=== PATIENT | female | born 1970 | race African-American/Black ===

== ENCOUNTER 2021-11-19 08:07 | Outpatient (REF) | payer OTHER, SELFPAY ==
[2021-11-19 08:24] LABS: MANUAL DIFF FLAG NO
[2021-11-19 09:24] LABS: Basophils Absolute Auto 0.1 X10*3/uL (0.0-0.2); Basophils Percent Auto 0.6 % (0-2); Eosinophils Absolute Auto 0.3 X10*3/uL (0.0-0.4); Eosinophils Percent Auto 3.5 % (0-4); Hematocrit 40.4 % (37.0-47.0); Hemoglobin 13.4 g/dl (12.0-16.0); Imm Gran Abs Auto 0.08 X10*3/uL (0.00-0.03); Imm Gran Pct Auto 0.8 % (0.0-0.4); Lymphocytes Absolute Auto 2.7 X10*3/uL (1.2-4.9); Lymphocytes Percent Auto 28.2 % (20-40); Mean Corpuscular HGB Conc 33.2 g/dl (31.0-35.0); Mean Corpuscular Hemoglobin 29.5 pg (27.0-33.0); Mean Platelet Volume 11.3 fL (9.4-12.3); Monocytes Absolute Auto 0.5 X10*3/uL (0.1-1.2); Monocytes Percent Auto 5.1 % (2-11); Neutrophils Percent Auto 61.8 % (45-73); Platelet Count 317 X10*3/uL (160-400); Red Blood Count 4.54 X10*6/uL (4.20-5.50); White Blood Count 9.7 X10*3/uL (4.8-10.8)
[2021-11-19 09:35] LABS: Alanine Aminotransferase 12 U/L (0-31); Albumin Level 4.3 g/dL (3.5-5.0); Alkaline Phosphatase 76 U/L (39-117); Anion Gap 13 (12-20); Aspartate Amino Transferase 16 U/L (5-31); Bilirubin Total 0.6 mg/dL (0.0-1.0); Blood Urea Nitrogen 9 mg/dL (9-16); Calcium 9.5 mg/dL (8.4-10.2); Carbon Dioxide 26 mmol/L (22-29); Chloride 104 mmol/L (96-108); Cholesterol 191 mg/dL; Estimated Glomerular Filt Rate > 60; Glucose Random 95 mg/dL (60-115); HDL Cholesterol 55 mg/dL; LDL Cholesterol Calculated 114 mg/dl; Sodium 139 mmol/L (135-145); Total Protein 7.1 g/dL (6.5-8.0); Triglycerides 113 mg/dL
[2021-11-19 09:37] LABS: Estimated Average Glucose 97 mg/dL
[2021-11-19 09:56] LABS: Free T4 (Free Thyroxine) 1.06 ng/dL (0.71-1.85); Thyroid Stimulating Hormone 2.17 uIU/mL (0.32-4.0); Vitamin D 25-OH Total 26.3 ng/mL (>30)
[2021-11-19 10:05] LABS: Folate 13.9 ng/mL (> or = 4.0); Vitamin B12 340 pg/mL (200-900)
== END 2021-11-19 08:08 | disposition home or self-care (01) ==
LOC: HO.LAB 08:07
PROVIDERS: PCP Internal Medicine; Visit Provider Internal Medicine
DX: I10 Essential (primary) hypertension (principal); K21.9 Gastro-esophageal reflux disease without esophagitis; E78.00 Pure hypercholesterolemia, unspecified
CPT/HCPCS: 36415; 80053; 80061; 82306; 82607; 82746; 83036; 84439; 84443; 85025

== ENCOUNTER 2023-05-08 11:02 | Outpatient (AMB) | payer OTHER, SELFPAY ==
[2023-05-08 11:03] VITALS: BP 126/82; PULSE 74; O2SAT 99; BMI 38.0
--- NOTE | 2023-05-08 11:03 | A.OFFPC_ITS ---
Vital Signs 05/08/23 11:03 Height 5 ft 2 in Weight 208 lb 0.6 oz BMI 38.0 BP 126/82 Blood Pressure Location Lt brachial Position Sitting Pulse 74 Pulse Source Pulse Oximeter Pulse Oximetry (%) 99 Oxygen Delivery Method Room Air Intake Visit Reasons: Annual exam Intake Note: Patient is here today for a physical. 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 Allergies [place] And Derivatives [CITRUS] Allergy (Unknown, Verified 05/08/23 11:08) ASTHMA ATTACKS shellfish derived [SHELLFISH DERIVED] Allergy (Unknown, Verified 05/08/23 11:08) UNKNOWN Medication List - Last Reconciled 05/08/23 by Nathaly Foley MD black cohosh 200 mg PO DAILY [Brain AWAKE capsule PO] fexofenadine (Neida Allergy) 180 mg PO DAILY fluticasone propion-salmeterol 250-50 mcg/dose (Advair Diskus) 1 inh PO BID fluticasone propionate 50 mcg/actuation 2 sprays intranasal DAILY hydrochlorothiazide 25 mg PO QAM multivitamin 1 tab PO DAILY omeprazole 20 mg PO DAILY sertraline 100 mg PO DAILY 90 days Tobacco use date assessed: 05/08/23 Dental Screening Dental Screen Date: 05/08/23 Did you have a dental visit in the last 12 months?: No Did you have a dental problem in the last 6 months where you did not have access to dental care?: No HPI Annual exam HPI Details 53-year-old obese female with asthma ANTONY D hypertension and generalized anxiety disorder last seen in April 2022. Patient is here for physical exam. Patient has been advised colonoscopy mammogram. [facility] Medical History (Updated 05/08/23 @ 11:27 by Nathaly Foley MD) Moderate obstructive sleep apnea Breast cancer screening by mammogram Frequency of micturition Generalized anxiety disorder Hypertension Obesity Asthma Allergic rhinitis Alcohol abuse GERD (gastroesophageal reflux disease) Surgical History H/O bilateral breast reduction surgery Family History Father No problems noted. Mother No problems noted. Maternal Grandfather Esophageal cancer Alcohol abuse Brother Schizophrenia Social History (Updated 05/08/23 @ 11:23 by Nathaly Foley MD) Housing: Apartment Alcohol intake: former Patient Tobacco Use Status: Former Tobacco user Tobacco use type: Cigarette Years Smoked: 38 years old stopped e-Cigarette/Vaping Use: Never Used Second Hand Smoke Exposure: No service: No Current occupational status: employed Current occupational exposures/hazards: No Cognitive needs: No Hearing needs: No Vision needs: Yes Questionnaire PHQ-9 Over the last 2 weeks, how often have you been bothered by any of the following problems? 1. Little interest or pleasure in doing things: not at all 2. Feeling down, depressed, or hopeless: not at all 3. Trouble falling or staying asleep, or sleeping too much: not at all 4. Feeling tired or having little energy: not at all 5. Poor appetite or overeating: not at all 6. Feeling bad about yourself - or that you are a failure or have let yourself or your family down: not at all 7. Trouble concentrating on things, such as reading the newspaper or watching television: not at all 8. Moving or speaking so slowly that other people could have noticed. Or the opposite - being so fidgety or restless that you have been moving around a lot more than usual: not at all 9. Thoughts that you would be better off or of hurting yourself in some way: not at all Total score: 0 Depression Screening Interpretation: Negative Depression Screening Done: Yes Source: Developed by Drs. Jasson Coffman, Esperanza Ibarra, Chip Barker and colleagues, with an educational zhanna from [employer]. Thrive Questionnaire Date Thrive assessed: 05/08/23 I am a: Patient What is your living situation today?: I have a steady place to live Within the past 12 months, did the food you bought not last and you didn't have the money to get more?: Never true Within the past 12 months, did you worry whether your food would run out before you got money to buy more?: Never true Do you have trouble paying for medicines?: No Do you have trouble getting transportation to medical appointments?: No Do you have trouble paying your heating and electricity bill?: No Do you have trouble taking care of your child, family member or friend?: No Do you have trouble with day-to-day activities such as bathing, preparing meals, shopping, managing finances, etc.?: No Are you currently unemployed and looking for a job?: No Are you interested in more education?: No AUDIT C Alcohol Use Questionnaire (AUDIT-C) 1. How often do you have a drink containing alcohol?: 2-4 times a month 2. How many drinks containing alcohol do you have on a typical day when you are drinking?: 1 or 2 3. How often do you have six or more drinks on one occasion?: Less than monthly Total Score: 3 JACK-7 AMB Questionnaire JACK-7 Date JACK - 7 assessed: 05/08/23 Feeling nervous, anxious, or on edge: 0 = Not at all Not being able to stop or control worryin = Not at all Worrying too much about different things: 0 = Not at all Trouble relaxin = Not at all Being so restless that it is hard to sit still: 0 = Not at all Becoming easily annoyed or irritable: 0 = Not at all Feeling afraid as if something awful might happen: 0 = Not at all Total JACK-7 score (0-4 normal; 5-9 mild; 10-14 moderate; 15-21 severe): 0 Source: Developed by Drs. Jasson Coffman, Esperanza Ibarra, Chip Barker and colleagues, with an educational zhanna from [employer]. Review of Systems Const Denies poor appetite and Denies weakness Eyes Denies no additional complaints ENT Reports Normal hearing present, Denies dizziness, Denies nasal congestion, Denies tinnitus and Denies sore throat Card Denies chest pain, Denies syncope, Denies rapid heart rate and Denies dyspnea Resp Denies cough and Denies dyspnea GI Denies change in stool character, Reports constipation, Denies diarrhea, Denies nausea and Denies vomiting Denies urinary frequency, Denies difficulty voiding and Denies dysuria Neuro Reports Normal hearing present, Denies confusion, Denies dizziness, Denies syncope and Denies weakness Psych Denies confusion Physical exam (Primary Care) Vital Signs: Last Vital Signs Pulse 74 05/08/23 11:03 BP 126/82 05/08/23 11:03 Pulse Ox 99 05/08/23 11:03 Oxygen Delivery Method Room Air 05/08/23 11:03 BMI result Body Mass Index 38.0 Tobacco/Smoking Status: Tobacco use Status Tobacco use date assessed 05/08/23 05/08/23 11:05 Patient Tobacco Use Status Former Tobacco user 05/08/23 11:05 Tobacco use type Cigarette 05/08/23 11:05 e-Cigarette/Vaping Use Never Used 05/08/23 11:05 PHQ-9: PHQ-9 Score PHQ-9: Total score 0 05/08/23 11:12 Depression Screening Interpretation: Negative Thrive Assessment: Date of Thrive Assessment Date Thrive assessed 05/08/23 05/08/23 11:05 Const General: No confusion Orientation/consciousness: No confusion HENMT Head: Yes normocephalic Ears: external ears normal and TM's normal bilaterally Face and sinus: Yes normal facial exam Mouth: moist mucous membranes Throat: Yes tonsils normal Eyes Conjunctivae: conjunctivae normal Pupils: Equal, round and reactive pupils present and Pupil accommodation reflex normal Direct Ophthalmoscopy: normal light reflex Neck Neck: No lymphadenopathy Thyroid: Thyroid normal Chest Chest palpation & inspection: normal inspection of the chest Resp Effort & Inspection: normal respiratory effort and no audible wheezes Auscultation: clear to auscultation bilaterally, no crackles, no wheezes and lung sounds not diminished Cardio Rate: regular rate Rhythm: regular rhythm Peripheral pulses: radial pulses present and dorsalis pedis present GI Palpation (GI): no masses Auscultation: normal bowel sounds and normoactive bowel sounds Rectal Exam - Female: deferred Skin General skin exam: no rashes or lesions noted Rashes: no rashes Neuro General: No confusion Cranial nerves: Yes Equal, round and reactive pupils present and Yes Normal hearing present Cognition (Neuro): normal cognition Gait exam (Neuro): Normal gait present Motor exam (neuro): 5/5 motor strength present throughout Deep tendon reflexes (DTR's): Right brachioradialis reflex intensity grade: 2+, Left brachioradialis reflex intensity grade: 2+, Right patellar reflex intensity grade: 2+ and Left patellar reflex intensity grade: 2+ Extrem General: No edema Office Procedures Flu Questionnaire Does the patient have a severe egg allergy?: No Does the patient have severe life threatening allergies?: No Does the patient have a fever or illness today?: No Has the patient ever had Guillain-Buford Syndrome?: No Has the patient ever had any past reaction to a flu shot?: No Immunizations flu vacc [id number] 6mos up(PF) 60 mcg(15 mcgx4)/0.5 mL IM syringe Performing Provider: Nathaly Foley MD [place] [facility] [place] [facility] Administered by: BECCA Corona on 05/08/23 11:17 Dose Route Admin Location Dispensed Lot Number Expiration Date NDC [employer] 0.5 mL IM Left Deltoid 0.5 mL [id number] 01/13/24 [id number] [employer] VIS Given Date VIS Provided VIS Publication Date 05/08/23 Single Vaccine 21 Eligibility Eligibility Date Funding Source Not [facility] Eligible 05/08/23 Private Assessment and Plan Assessment & Plan (1) Annual physical exam: Code(s): Z00.00 - Encounter for general adult medical examination without abnormal findings (2) Hypertension: Code(s): I10 - Essential (primary) hypertension Plan: Continue with blood pressure medication. Decrease salt intake and exercise on hydrochlorothiazide (3) Obesity: Code(s): E66.9 - Obesity, unspecified Plan: Diet and exercise (4) Asthma: Code(s): J45.909 - Unspecified asthma, uncomplicated Plan: Continue with rescue inhaler and controller inhaler (5) GERD (gastroesophageal reflux disease): Comment: Dr. Montejo 2011 EGD September 2016 Code(s): K21.9 - Gastro-esophageal reflux disease without esophagitis Plan: Avoid the foods that causes that usually spicy foods, tomato products, juices, coffee, soda and foods that your sensitive to. After eating do not lie down, allow 3-4 hours before in lie down. And keep the head of bed above 30 degrees to avoid the acid from going up. (6) Colon cancer screening: Code(s): Z12.11 - Encounter for screening for malignant neoplasm of colon Plan: Reminded about colonoscopy (7) Generalized anxiety disorder: Comment: Declined referral for counseling April 2022 Code(s): F41.1 - Generalized anxiety disorder Plan: Continue with therapy (8) Dysphagia: Code(s): R13.10 - Dysphagia, unspecified (9) Moderate obstructive sleep apnea: Comment: positional July 2018 Code(s): G47.33 - Obstructive sleep apnea (adult) (pediatric) Orders: Orders Influenza [id number] Immunization Today Z23 - Encounter for immunization Free T4 (Free Thyroxine) Today I10 - Essential (primary) hypertension Vitamin B12 and Folate Today I10 - Essential (primary) hypertension Complete Blood Count Auto Diff Today I10 - Essential (primary) hypertension Comprehensive Met. Panel Today I10 - Essential (primary) hypertension Thyroid Stimulating Hormone Today I10 - Essential (primary) hypertension Lipid Panel Today E78.00 - Pure hypercholesterolemia, unspecified, I10 - Essential (primary) hypertension Vitamin D 25-OH Total Today I10 - Essential (primary) hypertension Medications: New cholecalciferol (vitamin D3) 25 mcg PO DAILY 30 caps 0RF Coding Level of Care Code Est Pt Prev Care 40-64y(25261) Diagnoses Annual physical exam Z00.00 Hypertension I10 Obesity E66.9 Asthma J45.909 GERD (gastroesophageal reflux disease) K21.9 Colon cancer screening Z12.11 Generalized anxiety disorder F41.1 Dysphagia R13.10 Moderate obstructive sleep apnea G47.33
== END 2023-05-08 11:48 | disposition home or self-care (01) ==
PROVIDERS: Visit Provider Internal Medicine
DX: Z23 Encounter for immunization (principal); Z00.00 Encounter for general adult medical examination without abnormal findings; I10 Essential (primary) hypertension; E66.9 Obesity, unspecified; Z68.38 Body mass index [BMI] 38.0-38.9, adult; K21.9 Gastro-esophageal reflux disease without esophagitis; F41.1 Generalized anxiety disorder; R13.10 Dysphagia, unspecified; G47.33 Obstructive sleep apnea (adult) (pediatric)
CPT/HCPCS: 90471; 90686; 99396

== ENCOUNTER 2023-05-30 08:58 | Outpatient (REF) | payer OTHER, SELFPAY ==
[2023-05-30 09:14] LABS: MANUAL DIFF FLAG NO
[2023-05-30 10:15] LABS: Basophils Absolute Auto 0.1 X10*3/uL (0.0-0.2); Basophils Percent Auto 0.6 % (0-2); Eosinophils Absolute Auto 0.5 X10*3/uL (0.0-0.4); Eosinophils Percent Auto 5.3 % (0-4); Hematocrit 41.3 % (37.0-47.0); Hemoglobin 13.5 g/dl (12.0-16.0); Imm Gran Abs Auto 0.05 X10*3/uL (0.00-0.03); Imm Gran Pct Auto 0.6 % (0.0-0.4); Lymphocytes Absolute Auto 2.2 X10*3/uL (1.2-4.9); Lymphocytes Percent Auto 24.6 % (20-40); Mean Corpuscular HGB Conc 32.7 g/dl (31.0-35.0); Mean Corpuscular Hemoglobin 29.5 pg (27.0-33.0); Mean Corpuscular Volume 90.2 fL (80.0-98.0); Mean Platelet Volume 11.8 fL (9.4-12.3); Monocytes Absolute Auto 0.5 X10*3/uL (0.1-1.2); Monocytes Percent Auto 5.1 % (2-11); Neutrophils Absolute Auto 5.8 x10*3/uL (2.0-8.3); Neutrophils Percent Auto 63.8 % (45-73); Platelet Count 279 X10*3/uL (160-400); Red Blood Count 4.58 X10*6/uL (4.20-5.50); Red Cell Distribution Width 13.1 % (11.0-16.0); White Blood Count 9.1 X10*3/uL (4.8-10.8)
[2023-05-30 10:53] LABS: Alanine Aminotransferase 17 U/L (0-31); Albumin Level 4.2 g/dL (3.5-5.0); Alkaline Phosphatase 84 U/L (39-117); Anion Gap 13 (12-20); Aspartate Amino Transferase 19 U/L (5-31); Bilirubin Total 0.3 mg/dL (0.0-1.0); Blood Urea Nitrogen 12 mg/dL (9-16); Calcium 9.3 mg/dL (8.4-10.2); Carbon Dioxide 28 mmol/L (22-29); Chloride 107 mmol/L (96-108); Cholesterol 203 mg/dL (<200); Estimated Glomerular Filt Rate > 60; Glucose Random 102 mg/dL (60-115); HDL Cholesterol 52 mg/dL (>40); LDL Cholesterol Calculated 134 mg/dL (<100); Sodium 144 mmol/L (135-145); Total Protein 7.3 g/dL (6.5-8.0); Triglycerides 88 mg/dL (<150)
[2023-05-30 11:12] LABS: Free T4 (Free Thyroxine) 1.05 ng/dL (0.71-1.85)
[2023-05-30 11:22] LABS: Folate 9.2 ng/mL (> or = 4.0); Vitamin B12 407 pg/mL (200-900)
== END 2023-05-30 08:59 | disposition home or self-care (01) ==
LOC: HO.LAB 08:58
PROVIDERS: PCP Internal Medicine; Visit Provider Internal Medicine
DX: Z01.818 Encounter for other preprocedural examination (principal); K21.9 Gastro-esophageal reflux disease without esophagitis; I10 Essential (primary) hypertension; E78.00 Pure hypercholesterolemia, unspecified; Z87.19 Personal history of other diseases of the digestive system; E55.9 Vitamin D deficiency, unspecified
CPT/HCPCS: 36415; 80053; 80061; 82306; 82607; 82746; 84439; 84443; 85025

== ENCOUNTER 2023-05-30 10:18 | Outpatient (AMB) | payer OTHER, SELFPAY ==
--- NOTE | 2023-05-30 10:30 | MHC.OFFVIS ---
Intake Vital Signs 05/30/23 10:32 Height 5 ft 2 in Weight 214 lb BMI 39.1 BP 140/75 H Blood Pressure Location Lt brachial Position Sitting Pulse 76 Intake Visit Reasons: Colonoscopy Screening Intake Note: Patient new consult for 1st pre colonoscopy Patient: GERD, and denies any other GI issues. Licensed Psychologist Director Required: No Accompanied by: Self / Same As Patient Allergies [place] And Derivatives [CITRUS] Allergy (Unknown, Verified 05/30/23 10:30) ASTHMA ATTACKS shellfish derived [SHELLFISH DERIVED] Allergy (Unknown, Verified 05/30/23 10:30) UNKNOWN Medication List - Last Reconciled 05/30/23 by Yoli Baumann PA-C black cohosh 200 mg PO DAILY [Brain AWAKE capsule PO] cholecalciferol (vitamin D3) 25 mcg PO DAILY fexofenadine (Neida Allergy) 180 mg PO DAILY fluticasone propion-salmeterol 250-50 mcg/dose (Advair Diskus) 1 inh PO BID fluticasone propionate 50 mcg/actuation 2 sprays intranasal DAILY hydrochlorothiazide 25 mg PO QAM multivitamin 1 tab PO DAILY omeprazole 20 mg PO DAILY sertraline 100 mg PO DAILY 90 days HPI HPI Comments History of Present Illness Details A 53 y/o female referred for index screening colonoscopy a She has a normal bowel pattern No fam hx GI cancers No GI concerns Well controlled asthma- ROSE- f/U pcp- no issues Review of chart shows hx Barretts-04. not confirmed, 2017- no Barrettts Omeprazole daily- some break through- No N/V/D- fever or chills PFSH Medical History Moderate obstructive sleep apnea Breast cancer screening by mammogram Frequency of micturition Generalized anxiety disorder Hypertension Obesity Asthma Allergic rhinitis Alcohol abuse GERD (gastroesophageal reflux disease) Surgical History H/O bilateral breast reduction surgery Family History Father No problems noted. Mother No problems noted. Maternal Grandfather Esophageal cancer Alcohol abuse Brother Schizophrenia Social History (Updated 05/30/23 @ 12:15 by Yoli Baumann PA-C) Housing: Apartment Alcohol intake: former Patient Tobacco Use Status: Former Tobacco user Tobacco use type: Cigarette Years Smoked: 38 years old stopped e-Cigarette/Vaping Use: Never Used Second Hand Smoke Exposure: No service: No Current occupational status: employed Current occupation: [employer]- Current occupational exposures/hazards: No Cognitive needs: No Hearing needs: No Vision needs: Yes Review of Systems Const All systems reviewed & are unremarkable except as noted in HPI and below Card Denies chest pain and Denies dyspnea Resp Denies dyspnea GI Denies change in bowel habits and Reports heartburn Physical Exam Vital Signs: Last Vital Signs Pulse 76 05/30/23 10:32 BP 140/75 H 05/30/23 10:32 BMI result Body Mass Index 39.1 Const General: cooperative, healthy appearing, comfortable and no acute distress Orientation/consciousness: patient oriented x3 Limitations: no limitations Eyes Sclerae: sclerae normal Resp Effort & Inspection: normal respiratory effort and able to speak in complete sentences Auscultation: clear to auscultation bilaterally, no rales, no rhonchi and no wheezes Cardio Rate: regular rate Rhythm: regular rhythm Heart sounds: S1 normal heart sound present and S2 normal heart sound present GI Palpation (GI): Soft to palpation and nontender Auscultation: normal bowel sounds Skin General skin exam: no rashes or lesions noted Neuro General: patient oriented x3 Extrem General: Yes full ROM Psych Appearance: grossly normal and well kempt Mental Status: mental status grossly normal Speech and movement: Normal speech and movement present and Clear speech present Affect: normal affect Attitude: cooperative Thought process: Normal thought process present Thought content: Normal thought content present Results Reviewed Results Reviewed: Previous EGDs-pathology Assessment & Plan Assessment & Plan (1) History of Mcguire's esophagus: Comment: Reviewed record Mcguire's revealed back 2004-to follow-up EGD is previous not show Mcguire's Acid reflux breakthrough/water brash despite PPI Code(s): Z87.19 - Personal history of other diseases of the digestive system Plan: EGD (2) GERD (gastroesophageal reflux disease): Comment: Dr. Montejo 2011 EGD September 2016 Code(s): K21.9 - Gastro-esophageal reflux disease without esophagitis Plan: Reflux precautions Continue PPI EGD (3) Colon cancer screening: Code(s): Z12.11 - Encounter for screening for malignant neoplasm of colon Plan: Index screening colonoscopy Plan EGD/ colon- Dr. RENTERIA please MG ROSE Orders: Orders EGD/[place] Combo - GI Use Only Today K21.9 - Gastro-esophageal reflux disease without esophagitis, Z12.11 - Encounter for screening for malignant neoplasm of colon, Z87.19 - Personal history of other diseases of the digestive system Medications: New bisacodyl (Dulcolax (bisacodyl)) Day before procedure, prep day Take 4 tablets by mouth upon awakening followed by large glass of water 20 mg (4 x 5 mg) PO ONCE 1 day 4 tabs 0RF colonoscopy prep Z12.11 - Encounter for screening for malignant neoplasm of colon polyethylene glycol 3350 (Miralax) Take as directed by mouth the day before your procedure. 238 grams PO ONCE 1 day PRN 238 grams 0RF laxative effect Patient Instructions: Very pleasant 53 year old female, history of Barretts, referred for index screening colonoscopy EGD/ colon- Dr. RENTERIA please MG ROSE Courage to call questions or concerns Appreciate the opportunity assist in care pleasant patient Coding Level of Care Code New Pt Level 3 (14857) Diagnoses History of Mcguire's esophagus Z87.19 GERD (gastroesophageal reflux disease) K21.9 Colon cancer screening Z12.11 Time Spent (min) 30
[2023-05-30 10:32] VITALS: BP 140/75; PULSE 76; BMI 39.1
== END 2023-05-30 12:09 | disposition home or self-care (01) ==
PROVIDERS: PCP Internal Medicine; Visit Provider Physician Assistant
DX: Z87.19 Personal history of other diseases of the digestive system (principal); K21.9 Gastro-esophageal reflux disease without esophagitis; Z12.11 Encounter for screening for malignant neoplasm of colon
CPT/HCPCS: 99203

== ENCOUNTER 2023-11-23 08:15 | Day surgery (SDC) | payer OTHER, SELFPAY ==
--- NOTE | 2023-11-22 09:37 | HO.ANESPROP2 ---
Documented by User: Yvonne Granda NP 11/22/23 09:37 HPI - Anesthesia Eval Consult details Narrative: 53yo F for Upper Endoscopy and Colonoscopy [facility] Active Problems Active Problems: All Active Problems History of Mcguire's esophagus (Acute) Moderate obstructive sleep apnea (Acute) Dysphagia (Acute) Vitamin D deficiency (Acute) Colon cancer screening (Acute) Annual physical exam (Acute) Generalized anxiety disorder (Acute) Hypertension (Acute) Obesity (Acute) Asthma (Acute) GERD (gastroesophageal reflux disease) (Acute) Past Medical History Medical History Moderate obstructive sleep apnea Breast cancer screening by mammogram Frequency of micturition Generalized anxiety disorder Hypertension Obesity Asthma Allergic rhinitis Alcohol abuse GERD (gastroesophageal reflux disease) Family History Family History Father No problems noted. Mother No problems noted. Maternal Grandfather Esophageal cancer Alcohol abuse Brother Schizophrenia Surgical History Surgical History H/O bilateral breast reduction surgery Social History Social History (Updated 05/30/23 @ 12:15 by Yoli Baumann PA-C) Housing: Apartment Alcohol intake: former Patient Tobacco Use Status: Former Tobacco user Tobacco use type: Cigarette Years Smoked: 38 years old stopped e-Cigarette/Vaping Use: Never Used Second Hand Smoke Exposure: No Are you DNR?: No Advance Directives: No Advance Directives Information Provided: Yes service: No Current occupational status: employed Current occupation: [employer]- Current occupational exposures/hazards: No Cognitive needs: No Hearing needs: No Vision needs: Yes Meds Allergies Allergy/AdvReac Type Severity Reaction Status Date / Time V[place] And Derivatives Allergy Unknown ASTHMA Verified 05/30/23 10:30 [CITRUS] ATTACKS shellfish derived Allergy Unknown UNKNOWN Verified 05/30/23 10:30 [SHELLFISH DERIVED] Home Medications ?Medication ?Instructions ?Recorded ?Confirmed ?Last Taken ?Type Brain AWAKE capsule PO 05/08/23 05/30/23 Unknown History black cohosh 200 mg capsule 200 mg PO DAILY 05/08/23 05/30/23 Unknown History multivitamin 1 tab PO DAILY 05/08/23 05/30/23 Unknown History Assessment and Plan Assessment Anesthesia Assessment: Chart Reviewed Documented by User: Dara Mcgee MD 11/23/23 10:10 [facility] Past Medical History Medical History Moderate obstructive sleep apnea Breast cancer screening by mammogram Frequency of micturition Generalized anxiety disorder Hypertension Obesity Asthma Allergic rhinitis Alcohol abuse GERD (gastroesophageal reflux disease) Family History Family History Father No problems noted. Mother No problems noted. Maternal Grandfather Esophageal cancer Alcohol abuse Brother Schizophrenia Family history of problems with anesthesia: No Surgical History Surgical History H/O bilateral breast reduction surgery History of Problems with Anesthesia: No Social History Social History (Updated 05/30/23 @ 12:15 by Yoli Baumann PA-C) Housing: Apartment Alcohol intake: former Patient Tobacco Use Status: Former Tobacco user Tobacco use type: Cigarette Years Smoked: 38 years old stopped e-Cigarette/Vaping Use: Never Used Second Hand Smoke Exposure: No Are you DNR?: No Advance Directives: No Advance Directives Information Provided: Yes service: No Current occupational status: employed Current occupation: [employer]- Current occupational exposures/hazards: No Cognitive needs: No Hearing needs: No Vision needs: Yes Meds Allergies Allergy/AdvReac Type Severity Reaction Status Date / Time Vesta And Derivatives Allergy Unknown ASTHMA Verified 05/30/23 10:30 [CITRUS] ATTACKS shellfish derived Allergy Unknown UNKNOWN Verified 05/30/23 10:30 [SHELLFISH DERIVED] Home Medications ?Medication ?Instructions ?Recorded ?Confirmed ?Last Taken ?Type Brain AWAKE capsule PO 05/08/23 05/30/23 Unknown History black cohosh 200 mg capsule 200 mg PO DAILY 05/08/23 05/30/23 Unknown History multivitamin 1 tab PO DAILY 05/08/23 05/30/23 Unknown History Exam Airway Mallampati Class: II TM Dist: >3cm Neck ROM: Full Heart: rrr Lungs: cta Assessment and Plan Assessment Anesthesia Assessment: Anesthesia Plan Discussed Final Anesthetic Review Family History of Problems with Anesthesia: No History of Problems with Anesthesia: No NPO: Yes ASA Class: III Final Preanesthetic Review: No Changes in Pt Med Stat, Meds/Allgs Chart Reviewed and Consent Obtained/Reviewed Patient Risk: Intermediate Procedure Risk: Intermediate Anesthetic Plan Anesthetic Plan: MAC: Disposition: Standard PACU
--- NOTE | 2023-11-23 08:33 | MHC.SHP ---
Pre-Procedural Eval Section A - 24 Hr Update-Section A only Date of Service: 11/23/23 The patient is an INPATIENT: No The patient has been examined within 24 hours of the surgical procedure. The History & Physical has been completed within 30 days and I have reviewed it.: No Section B - Complete if H&P > 30 days Chief Complaint: Colon cancer screening, follow-up of Mcguire's Relevant Family History (Specify if Yes): No Relevant Social History: Tobacco Use (Former smoker) Present Medications: see Short Stay Collaborative assessment Medical History: Significant History (Moderate obstructive sleep apnea Breast cancer screening by mammogram Frequency of micturition Generalized anxiety disorder Hypertension Obesity Asthma Allergic rhinitis Alcohol abuse GERD (gastroesophageal reflux disease)) History of Previous Operations: Relevant previous surgery/procedure and date(s) (H/O bilateral breast reduction surgery) Allergies: Allergies Allergy/AdvReac Type Severity Reaction Status Date / Time [place] And Derivatives Allergy Unknown ASTHMA Verified 05/30/23 10:30 [CITRUS] ATTACKS shellfish derived Allergy Unknown UNKNOWN Verified 05/30/23 10:30 [SHELLFISH DERIVED] Review of Systems Sugical H&P ROS: Negative: Constitution, Cardiovascular, Respiratory and Gastrointestinal Exam Surgical H&P Exam: Normal: Heart, Normal: Lungs, Normal: Extremities and Normal: Abdomen Plan Diagnosis/Plan: Unchanged I have reviewed the history and physical and performed a pertinent physical examination on my patient. No changes have occurred unless specified. Time Spent With Patient Time: Total time managing care of this patient today ____ minutes.
[2023-11-23 08:59] VITALS: BP 123/69; PULSE 78; RESP 20; TEMP 36.6; O2SAT 7; BMI 38.1
[2023-11-23] MEDS: Lactated Ringers 1,000 ML 100 ML IVCONT (09:13)
--- NOTE | 2023-11-23 10:20 | HO.OPN-COLON ---
Colonoscopy Operative Note Operative Note Date of Service: 11/23/23 Narrative: FLEXIBLE TRANSORAL UPPER GASTROINTESTINAL ENDOSCOPY WITH BIOPSIES AND WATS AND COLONOSCOPY TILL CECUM WITH BIOPSIES Pre-op diagnosis: Colon cancer screening, GERD, follow-up of Mcguire's esophagus Post-op diagnosis: GERD, Gastritis, ? cecal polyp, Diverticulosis, Endoscopist:? Thai Tapia MD Anesthesia:?MAC UPPER ENDOSCOPY Consent: Indications for the procedure and potential complications of bleeding, perforation, reaction to medications and missed diagnosis were discussed with the patient and informed consent was obtained. Instrument: Olympus GIF H 190 mid size upper endoscope Monitoring: Vital signs and clinical assessment, continuous EKG monitoring, Pulse oximetry, Carbon Dioxide monitoring and blood pressure monitoring were done throughout the procedure. Procedure: The patient was placed in the left lateral decubitis position and pre-procedure medications were administered and a bite block was placed. The endoscope was inserted into the mouth and advanced under direct vision to the third part of duodenum. A careful inspection was made as the upper endoscope was withdrawn including a retroflexed examination of the proximal stomach; Findings and interventions are described below. Findings: Larynx: Normal Esophagus: GE junction at 35 cms. Irregular Z line with a 1 cms tongue of suspected Mcguire's - multiple biopsies were obtained and samples were obtained for WATS. Stomach: Moderate diffuse gastric erythema - biopsies were obtained from the antrum. Grade 2 flap valve on retroflexed examination of the cardia. Duodenum: Normal bulb and descending duodenum Intervention: Biopsies and WATS as noted above COLONOSCOPY PROCEDURE NOTE Instrument: Olympus PCF H 190 L variable stiffness pediatric colonoscope Monitoring: Vital signs and clinical assessment, intermittent blood pressure monitoring, continuous EKG monitoring, Pulse oximetry and Carbon Dioxide monitoring were done throughout the procedure. Please see anesthesia flowsheet. Colon withdrawl time was 19 minutes. Procedure: The patient was placed in the left lateral decubitis position and pre-procedure medications were administered. After a digital rectal examination of the ano-rectum, the video colonoscope was inserted into the rectum and advanced through the colon to the cecum. The colonoscope was slowly withdrawn in a retrograde panoramic fashion and the colon mucosa was carefully examined including a retroflexed view of the rectum. Findings and interventions are described below. Procedure Difficulty: without difficulty Findings: Terminal Ileum: Not evaluated Cecum: Prominent fold at appendicular orifice - biopsies were obtained to rule out adenomatous polyp Ascending Colon: Normal Transverse Colon: Normal Descending Colon: Moderate diverticulosis Sigmoid Colon: Moderate diverticulosis Rectum: Normal Ano-rectum: Normal Colon preparation: Good and fair in the left colon after copious irrigation. Reubens Bowel Preparation Scale Right colon; 2 Transverse colon: 2 Left colon; 1 (0 = Unprepared colon segment with mucosa not seen due to solid stool that cannot be cleared. 1 = Portion of mucosa of the colon segment seen, but other areas of the colon segment not well seen due to staining, residual stool and/or opaque liquid. 2 = Minor amount of residual staining, small fragments of stool and/or opaque liquid, but mucosa of colon segment seen well. 3 = Entire mucosa of colon segment seen well with no residual staining, small fragments of stool or opaque liquid) Impression and Post Procedure Diagnosis: Endoscopy Findings: ESOPHAGUS: Irregular Z line with a 1 cms tongue of suspected Mcguier's Multiple biopsies were obtained and samples were obtained for WATS. STOMACH: Diffuse gastritis Colonoscopy Findings: Prominent fold at appendicular orifice - biopsies were obtained to rule out adenomatous polyp Moderate diverticulosis seen in the left colon Plan: Pt has a FU appointment on 12/03/23 with SHRUTI Velazquez, Repeat Colonoscopy in 5 years due to fair prep in the left colon. Above findings were reviewed with the patient and relevant handouts were given and the discharge area.
[2023-11-23 11:29] VITALS: BP 128/77; PULSE 64; RESP 16; TEMP 36.2; O2SAT 99
[2023-11-23 11:40] VITALS: BP 137/91; PULSE 61; RESP 16; O2SAT 99
[2023-11-23 11:52] VITALS: BP 154/79; PULSE 57; RESP 16; TEMP 36.4; O2SAT 100
== END 2023-11-23 12:20 | disposition home or self-care (01) ==
PROVIDERS: PCP Internal Medicine; Visit Provider Internal Medicine Gastroenterology
PROC: (CPT 45380; principal; 2023-11-23 10:10)
DX: Z12.11 Encounter for screening for malignant neoplasm of colon (principal); K57.30 Diverticulosis of large intestine without perforation or abscess without bleeding; Q43.8 Other specified congenital malformations of intestine; K21.9 Gastro-esophageal reflux disease without esophagitis; K22.89 Other specified disease of esophagus; K29.70 Gastritis, unspecified, without bleeding; I10 Essential (primary) hypertension; J45.909 Unspecified asthma, uncomplicated; G47.33 Obstructive sleep apnea (adult) (pediatric)
CPT/HCPCS: 45380; 43239; 88305; 88313; 88342; J2704

== ENCOUNTER → 2023-11-23 08:15 | Outpatient (BNV) | payer OTHER, SELFPAY | PROVIDERS: PCP Internal Medicine; Visit Provider Internal Medicine Gastroenterology | DX: Z12.11 Encounter for screening for malignant neoplasm of colon (principal); K21.9 Gastro-esophageal reflux disease without esophagitis; K22.70 Barrett's esophagus without dysplasia; K57.30 Diverticulosis of large intestine without perforation or abscess without bleeding; D12.0 Benign neoplasm of cecum | CPT/HCPCS: 43239; 45380 ==

== ENCOUNTER 2023-12-03 09:30 | Outpatient (AMB) | payer OTHER, SELFPAY ==
[2023-12-03 09:33] VITALS: BP 145/78; PULSE 69; BMI 38.4
--- NOTE | 2023-12-03 09:33 | MHC.OFFVIS ---
Vital Signs 12/03/23 09:33 Height 5 ft 2 in Weight 210 lb BMI 38.4 BP 145/78 H Blood Pressure Location Lt brachial Position Sitting Pulse 69 Intake Visit Reasons: S/p egd/colon Willie Intake Note: Liz returns to in office visit today in follow up s/p EGD and colonoscopy. CC: Patient states that she is doing well and denies having any GI symptoms today. 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 Device Engineer Required: No Accompanied by: Self / Same As Patient Allergies [place] And Derivatives [CITRUS] Allergy (Unknown, Verified 12/03/23 09:37) ASTHMA ATTACKS No Known Drug Allergies Allergy (Unknown, Verified 12/03/23 09:37) none shellfish derived [SHELLFISH DERIVED] Allergy (Unknown, Verified 12/03/23 09:37) UNKNOWN Medication List - Last Reconciled 12/03/23 by Yoli Baumann PA-C albuterol sulfate 90 mcg/actuation 2 puffs inhalation Q6H PRN cholecalciferol (vitamin D3) 25 mcg PO DAILY fexofenadine (Neida Allergy) 180 mg PO DAILY fluticasone propion-salmeterol 250-50 mcg/dose (Advair Diskus) 1 inh PO BID fluticasone propionate 50 mcg/actuation 2 sprays intranasal DAILY hydrochlorothiazide 25 mg PO QAM multivitamin 1 tab PO DAILY omeprazole 20 mg PO DAILY sertraline 100 mg PO DAILY 90 days HPI Comments Details: 53-year-old female previous diagnosis of Mcguire's follows up after recent EGD/ colon- 11/22 Dr. Tapia Patient tolerated procedures well She continues to have acid reflux she is unable to miss 1 dose of omeprazole without symptoms exacerbate We reviewed procedure report, pathology and recommendations-opportunity for questions She has no nausea, vomiting hematemesis, hematochezia fever or chills PFSH Medical History Moderate obstructive sleep apnea Breast cancer screening by mammogram Frequency of micturition Generalized anxiety disorder Hypertension Obesity Asthma Allergic rhinitis Alcohol abuse GERD (gastroesophageal reflux disease) Surgical History History of esophagogastroduodenoscopy (EGD) Hx of colonoscopy H/O bilateral breast reduction surgery Family History Father No problems noted. Mother No problems noted. Maternal Grandfather Esophageal cancer Alcohol abuse Brother Schizophrenia Social History Housing: Apartment Alcohol intake: former Patient Tobacco Use Status: Former Tobacco user Tobacco use type: Cigarette Years Smoked: 38 years old stopped e-Cigarette/Vaping Use: Never Used Second Hand Smoke Exposure: No service: No Current occupational status: employed Current occupation: [employer]- Current occupational exposures/hazards: No Cognitive needs: No Hearing needs: No Vision needs: Yes Review of Systems Const All systems reviewed & are unremarkable except as noted in HPI and below Card Denies chest pain GI Reports heartburn Physical Exam Vital Signs: Last Vital Signs Pulse 69 12/03/23 09:33 BP 145/78 H 12/03/23 09:33 BMI result Body Mass Index 38.4 Const General: cooperative, healthy appearing, comfortable and no acute distress Orientation/consciousness: patient oriented x3 Limitations: no limitations Neuro General: patient oriented x3 Psych Appearance: grossly normal Mental Status: mental status grossly normal Speech and movement: Normal speech and movement present and Clear speech present Affect: normal affect Attitude: cooperative Thought process: Normal thought process present Thought content: Normal thought content present Results Reviewed Results Reviewed: Impression and Post Procedure Diagnosis: Endoscopy Findings: ESOPHAGUS: Irregular Z line with a 1 cms tongue of suspected Mcguire's Multiple biopsies were obtained and samples were obtained for WATS. STOMACH: Diffuse gastritis Colonoscopy Findings: Prominent fold at appendicular orifice - biopsies were obtained to rule out adenomatous polyp Moderate diverticulosis seen in the left colon Plan: Pt has a FU appointment on 12/03/23 with SHRUTI Velazquez, Repeat Colonoscopy in 5 years due to fair prep in the left colon. Above findings were reviewed with the patient and relevant handouts were given and the discharge area. me: Liz Alcocer I Age/Sex: 53/F Attending: Thai Tapia MD : 1970 Submitted by: Thai Tapia MD Copies to: Nathaly Foley MD MR #: [id number] Status: [facility] Collected: 11/23/23 Location: [facility] Received: 11/23/23 Diagnosis A. Stomach, antrum, biopsy: Gastric antral mucosa with mild chronic inactive gastritis and features of reactive gastropathy; negative for Helicobacter pylori, intestinal metaplasia and dysplasia. B. Gastroesophageal junction, biopsy: Gastric cardia-type mucosa with mild chronic inflammation; no squamous mucosa seen; negative for intestinal metaplasia and dysplasia. C. Colon, cecal fold, biopsy: Colonic mucosa with a prominent lymphoid aggregate; negative for dysplasia. Clinical History Pre-Op Dx: Colon cancer screening, follow up of Mcguire's Post-Op Dx: Upper: gastritis and GERD; Lower: diverticulosis and polyp of cecal fold Microscopic Description Microscopic sections reviewed. No metaplastic changes are seen, supported by AB/PAS stains (A-B); no Helicobacter organisms are seen, supported by H. pylori immunostain (A). Material Received A. Gastric antrum bx B. GE junction, r/o Mcguire's C. Cecal fold bx Gross Description Received in three parts. Part A: Received in formalin labeled ?gastric antrum bx? are 2 nguyen-pink irregular and rectangular tissue fragments measuring 0.2 and 0.3 cm, submitted in toto in a cassette labeled A. Part B: Received in formalin labeled ?GE junction bx, rule out Mcguire's? are 3 nguyen-pink irregular tissue fragments ranging from 0.1-0.3 cm, submitted in toto in a cassette labeled B. Part C: Received in formalin labeled ?cecal fold bx? are 2 nguyen-white and nguyen-pink irregular tissue fragments measuring less than 0.1 and 0.25 cm, submitted in toto in a cassette labeled C. CEDS Special stains ordered and performed: AB/PAS on A-B; immunostain for H. pylori on A. Patient: Liz Alcocer I Age/Sex: 53/F MR#: [id number] Page 1 of 2 Assessment & Plan Assessment & Plan (1) History of Mcguire's esophagus: Comment: Reviewed record Mcguire's revealed back 2004-to follow-up EGD did not show Mcguire's Acid reflux breakthrough/water brash despite PPI Code(s): Z87.19 - Personal history of other diseases of the digestive system Category: Medical Plan: Repeat EGD 3 years Switch omeprazole to pantoprazole (2) GERD (gastroesophageal reflux disease): Comment: Dr. Montejo 2011 EGD September 2016 Code(s): K21.9 - Gastro-esophageal reflux disease without esophagitis Category: Medical Plan: Pantoprazole 40 mg Reflux precautions (3) Diverticulosis of colon: Code(s): K57.30 - Diverticulosis of large intestine without perforation or abscess without bleeding Category: Medical Plan: ER protocol Plan pls place reminder- EGD 3years/ colonoscopy 5 years pantoprazole 40 f/u few mos- may decrease dose if good response Ref wt management Orders: Referrals [employer] Nutrition Referral E66.9 - Obesity, unspecified, J45.909 - Unspecified asthma, uncomplicated, K21.9 - Gastro-esophageal reflux disease without esophagitis Medications: New pantoprazole 40 mg PO DAILY 30 days 30 tabs 5RF Patient Instructions: pls place reminder- EGD 3years/ colonoscopy 5 years pantoprazole 40 f/u few mos- may decrease dose if good response Reflux precautions refer wt management- Call if with concerns- Coding Level of Care Code Est Pt Level 3 (50041) Diagnoses History of Mcguire's esophagus Z87.19 GERD (gastroesophageal reflux disease) K21.9 Diverticulosis of colon K57.30 Time Spent (min) 30
== END 2023-12-03 10:12 | disposition home or self-care (01) ==
PROVIDERS: PCP Internal Medicine; Visit Provider Physician Assistant
DX: Z87.19 Personal history of other diseases of the digestive system (principal); K21.9 Gastro-esophageal reflux disease without esophagitis; K57.30 Diverticulosis of large intestine without perforation or abscess without bleeding
CPT/HCPCS: 99213

== ENCOUNTER → 2023-12-03 09:30 | Outpatient (BNVA) | payer OTHER, SELFPAY | PROVIDERS: PCP Internal Medicine; Visit Provider Physician Assistant ==

== ENCOUNTER 2024-04-03 08:44 | Outpatient (AMB) | payer OTHER, SELFPAY ==
[2024-04-03 08:45] VITALS: BP 132/92; PULSE 77; O2SAT 97; BMI 39.3
--- NOTE | 2024-04-03 08:45 | MHC.PC.OV ---
Vital Signs 04/03/24 08:45 Height 5 ft 2 in Weight 215 lb BMI 39.3 BP 132/92 H Blood Pressure Location Lt brachial Position Sitting Pulse 77 Pulse Source Pulse Oximeter Pulse Oximetry (%) 97 Oxygen Delivery Method Room Air Intake Visit Reasons: Follow Up Allergies [place] And Derivatives [CITRUS] Allergy (Unknown, Verified 04/03/24 08:46) ASTHMA ATTACKS No Known Drug Allergies Allergy (Unknown, Verified 04/03/24 08:46) none shellfish derived [SHELLFISH DERIVED] Allergy (Unknown, Verified 04/03/24 08:46) UNKNOWN Tobacco use date assessed: 04/03/24 Dental Screening Dental Screen Date: 04/03/24 Did you have a dental visit in the last 12 months?: Yes Did you have a dental problem in the last 6 months where you did not have access to dental care?: No Was dental information given to patient?: Patient has dentist HPI Follow Up HPI Details 54-year-old obese female with hypertension asthma GERD generalized anxiety disorder coming in for follow-up. Patient also has obstructive sleep apnea. Patient's mammogram is due colonoscopy is up-to-date. Review of the notes has seen gastroenterology november 2023 EGD gastritis suspected Barretts colonoscopy repeat in 5 years due to fair prep. No more Barretts this time but does have refill patient was advised to have repeat EGD in 3 years switch omeprazole to pantoprazole. Patient was in the Urgent Center recently for acute bronchitis March 29, 2024 states sinus infection and sob, rx prednisone and zithromax., sob,. PFSH Medical History (Updated 04/03/24 @ 09:17 by Nathaly Foley MD) Colon cancer screening Moderate obstructive sleep apnea Breast cancer screening by mammogram Frequency of micturition Generalized anxiety disorder Hypertension Obesity Asthma Allergic rhinitis Alcohol abuse GERD (gastroesophageal reflux disease) Surgical History History of esophagogastroduodenoscopy (EGD) Hx of colonoscopy H/O bilateral breast reduction surgery Family History Father No problems noted. Mother No problems noted. Maternal Grandfather Esophageal cancer Alcohol abuse Brother Schizophrenia Social History Housing: Apartment Alcohol intake: former Patient Tobacco Use Status: Former Tobacco user Tobacco use type: Cigarette Years Smoked: 38 years old stopped e-Cigarette/Vaping Use: Never Used Second Hand Smoke Exposure: No service: No Current occupational status: employed Current occupation: [employer]iary- Current occupational exposures/hazards: No Cognitive needs: No Hearing needs: No Vision needs: Yes Questionnaire PHQ-9 Over the last 2 weeks, how often have you been bothered by any of the following problems? 1. Little interest or pleasure in doing things: not at all 2. Feeling down, depressed, or hopeless: not at all 3. Trouble falling or staying asleep, or sleeping too much: not at all 4. Feeling tired or having little energy: not at all 5. Poor appetite or overeating: not at all 6. Feeling bad about yourself - or that you are a failure or have let yourself or your family down: not at all 7. Trouble concentrating on things, such as reading the newspaper or watching television: not at all 8. Moving or speaking so slowly that other people could have noticed. Or the opposite - being so fidgety or restless that you have been moving around a lot more than usual: not at all 9. Thoughts that you would be better off or of hurting yourself in some way: not at all Total score: 0 Depression Screening Interpretation: Negative Depression Screening Done: Yes Source: Developed by Drs. Jasson Coffman, Esperanza Ibarra, Chip Barker and colleagues, with an educational zhanna from [employer]. Thrive Questionnaire Date Thrive assessed: 04/03/24 I am a: Patient What is your living situation today?: I have a steady place to live Within the past 12 months, did the food you bought not last and you didn't have the money to get more?: Never true Within the past 12 months, did you worry whether your food would run out before you got money to buy more?: Never true Do you have trouble paying for medicines?: No Do you have trouble getting transportation to medical appointments?: No Do you have trouble paying your heating and electricity bill?: No Do you have trouble taking care of your child, family member or friend?: No Do you have trouble with day-to-day activities such as bathing, preparing meals, shopping, managing finances, etc.?: No Are you currently unemployed and looking for a job?: No Are you interested in more education?: No Currently or been in a relationship where the following occur: No concerns reported THRIVE Score: 0 AUDIT C Alcohol Use Questionnaire (AUDIT-C) 1. How often do you have a drink containing alcohol?: 2-4 times a month 2. How many drinks containing alcohol do you have on a typical day when you are drinking?: 1 or 2 3. How often do you have six or more drinks on one occasion?: Less than monthly Total Score: 3 JACK-7 AMB Questionnaire JACK-7 Date JACK - 7 assessed: 04/03/24 Feeling nervous, anxious, or on edge: 0 = Not at all Not being able to stop or control worryin = Not at all Worrying too much about different things: 0 = Not at all Trouble relaxin = Not at all Being so restless that it is hard to sit still: 0 = Not at all Becoming easily annoyed or irritable: 0 = Not at all Feeling afraid as if something awful might happen: 0 = Not at all Total JACK-7 score (0-4 normal; 5-9 mild; 10-14 moderate; 15-21 severe): 0 Source: Developed by Drs. Jasson Coffman, Esperanza Ibarra, Chip Barker and colleagues, with an educational zhanna from [employer]. Physical exam (Primary Care) Vital Signs: Last Vital Signs Pulse 77 04/03/24 08:45 BP 132/92 H 04/03/24 08:45 Pulse Ox 97 04/03/24 08:45 Oxygen Delivery Method Room Air 04/03/24 08:45 BMI result Body Mass Index 39.3 Tobacco/Smoking Status: Tobacco use Status Tobacco use date assessed 04/03/24 04/03/24 08:49 Patient Tobacco Use Status Former Tobacco user 04/03/24 08:49 Tobacco use type Cigarette 04/03/24 08:49 e-Cigarette/Vaping Use Never Used 04/03/24 08:49 PHQ-9: PHQ-9 Score PHQ-9: Total score 0 04/03/24 08:49 Depression Screening Interpretation: Negative Thrive Assessment: Date of Thrive Assessment Date Thrive assessed 04/03/24 04/03/24 08:49 Currently or been in a relationship where the following occur: No concerns reported Const General: alert; No acute distress Eyes Conjunctivae: conjunctivae normal Resp Auscultation: clear to auscultation bilaterally Cardio Rate: regular rate Rhythm: regular rhythm GI Inspection: Yes normal to inspection Extrem General: Yes normal to inspection and No edema Assessment and Plan Assessment & Plan (1) GERD (gastroesophageal reflux disease): Comment: Dr. Montejo 2011 EGD September 2016 Code(s): K21.9 - Gastro-esophageal reflux disease without esophagitis Plan: Avoid the foods that causes that usually spicy foods, tomato products, juices, coffee, soda and foods that your sensitive to. After eating do not lie down, allow 3-4 hours before in lie down. And keep the head of bed above 30 degrees to avoid the acid from going up. EGD done reflux even with omeprazole and so was changed to pantoprazole (2) Asthma: Code(s): J45.909 - Unspecified asthma, uncomplicated Plan: Continue with the inhalers albuterol and Advair (3) Obesity: Code(s): E66.9 - Obesity, unspecified Plan: Diet and exercise (4) Hypertension: Code(s): I10 - Essential (primary) hypertension Plan: Continue with blood pressure medication hydrochlorothiazide (5) Generalized anxiety disorder: Comment: Declined referral for counseling April 2022 Code(s): F41.1 - Generalized anxiety disorder Plan: Continue with sertraline (6) Hypercholesterolemia: Code(s): E78.00 - Pure hypercholesterolemia, unspecified (7) Impaired fasting blood sugar: Code(s): R73.01 - Impaired fasting glucose (8) Acute bronchitis: Code(s): J20.9 - Acute bronchitis, unspecified Plan: resolving Orders: Orders Vitamin B12 and Folate 3 Months E66.9 - Obesity, unspecified Complete Blood Count Auto Diff 3 Months E66.9 - Obesity, unspecified Comprehensive Met. Panel 3 Months E66.9 - Obesity, unspecified Free T4 (Free Thyroxine) 3 Months E66.9 - Obesity, unspecified Hemoglobin A1c 3 Months E66.9 - Obesity, unspecified Lipid Panel 3 Months E66.9 - Obesity, unspecified, E78.00 - Pure hypercholesterolemia, unspecified Thyroid Stimulating Hormone 3 Months E66.9 - Obesity, unspecified Vitamin D 25-OH Total 3 Months E66.9 - Obesity, unspecified Medications: New fluticasone propion-salmeterol 250-50 mcg/dose (Wixela Inhub) 1 inh inhalation BID 60 ea 0RF J45.909 - Unspecified asthma, uncomplicated tirzepatide (weight loss) (Zepbound) for 4 weeks 2.5 mg (0.5 mL) subcut QWEEK 2 mL 2RF E66.9 - Obesity, unspecified Discontinued fluticasone propion-salmeterol 250-50 mcg/dose (Advair Diskus) Discontinued Reason: Duplicate 1 inh PO BID 180 ea 3RF Coding Level of Care Code Est Pt Level 4 (55506) Diagnoses GERD (gastroesophageal reflux disease) K21.9 Asthma J45.909 Obesity E66.9 Hypertension I10 Generalized anxiety disorder F41.1 Hypercholesterolemia E78.00 Impaired fasting blood sugar R73.01 Acute bronchitis J20.9
== END 2024-04-03 09:22 | disposition home or self-care (01) ==
PROVIDERS: PCP Internal Medicine; Visit Provider Internal Medicine
DX: K21.9 Gastro-esophageal reflux disease without esophagitis (principal); J45.909 Unspecified asthma, uncomplicated; Z68.39 Body mass index [BMI] 39.0-39.9, adult; E66.9 Obesity, unspecified; I10 Essential (primary) hypertension; F41.1 Generalized anxiety disorder; E78.00 Pure hypercholesterolemia, unspecified; R73.01 Impaired fasting glucose; J20.9 Acute bronchitis, unspecified

== ENCOUNTER → 2024-04-03 08:44 | Outpatient (BNVA) | payer OTHER, SELFPAY | PROVIDERS: PCP Internal Medicine; Visit Provider Internal Medicine | DX: K21.9 Gastro-esophageal reflux disease without esophagitis (principal); J45.909 Unspecified asthma, uncomplicated; E66.9 Obesity, unspecified; Z68.39 Body mass index [BMI] 39.0-39.9, adult; I10 Essential (primary) hypertension; F41.1 Generalized anxiety disorder; E78.00 Pure hypercholesterolemia, unspecified; R73.01 Impaired fasting glucose; J20.9 Acute bronchitis, unspecified; Z79.899 Other long term (current) drug therapy | CPT/HCPCS: 96127 ==

== ENCOUNTER 2024-07-18 14:45 | Outpatient (AMB) | payer OTHER, SELFPAY ==
[2024-07-18 14:54] VITALS: BP 126/80; PULSE 65; O2SAT 97; BMI 40.1
--- NOTE | 2024-07-18 14:54 | A.OFFPC_ITS ---
Vital Signs 07/18/24 14:54 Height 5 ft 2 in Weight 219 lb 8 oz BMI 40.1 BP 126/80 Blood Pressure Location Lt brachial Position Sitting Pulse 65 Pulse Source Pulse Oximeter Pulse Oximetry (%) 97 Oxygen Delivery Method Room Air Intake Visit Reasons: Annual Exam Allergies Miller And Derivatives [CITRUS] Allergy (Unknown, Verified 07/18/24 15:00) ASTHMA ATTACKS shellfish derived [SHELLFISH DERIVED] Allergy (Unknown, Verified 07/18/24 15:00) UNKNOWN Medication List - Last Reconciled 07/18/24 by Nathaly Foley MD albuterol sulfate 90 mcg/actuation 2 puffs inhalation Q6H PRN cholecalciferol (vitamin D3) 25 mcg PO DAILY fexofenadine (Neida Allergy) 180 mg PO DAILY fluticasone propion-salmeterol 250-50 mcg/dose (Wixela Inhub) 1 inh inhalation BID fluticasone propionate 50 mcg/actuation 2 sprays intranasal DAILY hydrochlorothiazide 25 mg PO QAM multivitamin 1 tab PO DAILY pantoprazole 40 mg PO DAILY 30 days sertraline 100 mg PO DAILY 90 days Tobacco use date assessed: 07/18/24 Dental Screening Dental Screen Date: 07/18/24 Did you have a dental visit in the last 12 months?: No Did you have a dental problem in the last 6 months where you did not have access to dental care?: No Was dental information given to patient?: Patient has dentist HPI Annual Exam HPI Details The patient is a 54-year-old female presenting with concerns primarily related to the management of hypertension, hyperlipidemia, asthma, and GERD. The patient reports ongoing essential hypertension managed with hydrochlorothiazide, 25 mg once daily, and notes stability in blood pressure readings. Hyperlipidemia was noted last year, with elevated cholesterol levels; fasting blood work is pending to re-evaluate cholesterol levels post-holidays. Asthma has been exacerbated recently, contributing to increased use of albuterol. The patient is currently using Wexela daily, although she finds it less preferable compared to Advair. GERD, previously managed with omeprazole, was transitioned to pantoprazole 40 mg daily, but this regimen is perceived as slower in symptomatic relief. The patient is not allergic to medications but has known allergies to shellfish and citrus. Reports of allergic rhinitis lead to intermittent use of Neida. Additionally, the patient has experienced episodes of congestion and sinus pressure, without nasal saline rinses. She denies recent new medical diagnoses or surgeries. A family history is significant for esophageal cancer in her grandfather and an unspecified aggressive cancer in a recently aunt, with rapid metastases noted. The patient reports symptoms consistent with urinary urgency and incontinence, o ccurring two to three times per night and occasionally resulting in episodes of nighttime enuresis. This has not required pharmacological intervention so far. She describes avoiding fluid intake before bed and frequent restroom use as mitigating actions. - Explicitly advised to maintain fasting prior to blood work for re-evaluation of hyperlipidemia. - Encouraged vaccination with the COVID- 19 vaccine due to respiratory conditions. - RSV vaccination was not recommended; u p-to-date on influenza vaccination. - Discussed the importance of continued asthma management and potential consideration of alternating GERD treatments. - Encouraged to seek alternative insuran ce coverage for weight management medications like Wegovy or Ozempic. - Employment: Reports being employed in a setting where frequent exposure to illness is noted. - Substance Use: Denies regular alcohol consumption, previously smoked; currently abstinent. - Lifestyle: Desires weight management; faces insurance barriers to medication access. - Family: Single; has a support system i ncluding family. - Exercise: Not specified beyond a gabriela e to remain healthy. - Diet: No significant intake of dietary triggers noted beyond allergies. - Respiratory: Reports increased cough a nd phlegm post-cold. - ENT: Reports sinus congestion and head aches. - Gastrointestinal: Occasional nighttime regurgitation and increased GERD symptoms noted. - Genitourinary: Reports nocturia and ur gency-related incontinence. - Neurological: Denies focal neurologica l deficits; reports occasional headaches. - Musculoskeletal: No new muscle or join t pain noted. - Sleep: Disturbances related to possibl e sleep apnea. - Labs: Previous cholesterol levels repo rted as elevated; current fasting blood work pending. - Eye Examination: Recent optic check at [facility], no abnormalities reported. [facility] Medical History Colon cancer screening Moderate obstructive sleep apnea Breast cancer screening by mammogram Frequency of micturition Generalized anxiety disorder Hypertension Obesity Asthma Allergic rhinitis Alcohol abuse GERD (gastroesophageal reflux disease) Surgical History History of esophagogastroduodenoscopy (EGD) Hx of colonoscopy H/O bilateral breast reduction surgery Family History Father No problems noted. Mother No problems noted. Maternal Grandfather Esophageal cancer Alcohol abuse Brother Schizophrenia Social History (Updated 07/18/24 @ 15:47 by Nathaly Foley MD) Housing: Apartment Alcohol intake: former Comment: once a month 2 drinks Patient Tobacco Use Status: Former Tobacco user Tobacco use type: Cigarette Years Smoked: 38 years old stopped e-Cigarette/Vaping Use: Never Used Second Hand Smoke Exposure: No service: No Current occupational status: employed Current occupation: [employer]- Current occupational exposures/hazards: No Cognitive needs: No Hearing needs: No Vision needs: Yes Questionnaire PHQ-9 Over the last 2 weeks, how often have you been bothered by any of the following problems? 1. Little interest or pleasure in doing things: not at all 2. Feeling down, depressed, or hopeless: not at all 3. Trouble falling or staying asleep, or sleeping too much: not at all 4. Feeling tired or having little energy: not at all 5. Poor appetite or overeating: not at all 6. Feeling bad about yourself - or that you are a failure or have let yourself or your family down: not at all 7. Trouble concentrating on things, such as reading the newspaper or watching television: not at all 8. Moving or speaking so slowly that other people could have noticed. Or the opposite - being so fidgety or restless that you have been moving around a lot more than usual: not at all 9. Thoughts that you would be better off or of hurting yourself in some way: not at all Total score: 0 Depression Screening Interpretation: Negative Depression Screening Done: Yes 40746 - PHQ-9 Billing: Yes Source: Developed by Drs. Jasson Coffman, Esperanza Ibarra, Chip Barker and colleagues, with an educational zhanna from [employer]. Thrive Questionnaire Date Thrive assessed: 07/18/24 I am a: Patient What is your living situation today?: I have a steady place to live Within the past 12 months, did the food you bought not last and you didn't have the money to get more?: Never true Within the past 12 months, did you worry whether your food would run out before you got money to buy more?: Never true Do you have trouble paying for medicines?: No Do you have trouble getting transportation to medical appointments?: No Do you have trouble paying your heating and electricity bill?: No Do you have trouble taking care of your child, family member or friend?: No Do you have trouble with day-to-day activities such as bathing, preparing meals, shopping, managing finances, etc.?: No Are you currently unemployed and looking for a job?: No Are you interested in more education?: No Please select the resources that you would like help with: None Currently or been in a relationship where the following occur: No concerns reported THRIVE Score: 0 AUDIT C Alcohol Use Questionnaire (AUDIT-C) 1. How often do you have a drink containing alcohol?: Monthly or less 2. How many drinks containing alcohol do you have on a typical day when you are drinking?: 1 or 2 3. How often do you have six or more drinks on one occasion?: Never Total Score: 1 JACK-7 AMB Questionnaire JACK-7 Date JACK - 7 assessed: 07/18/24 Feeling nervous, anxious, or on edge: 0 = Not at all Not being able to stop or control worryin = Not at all Worrying too much about different things: 0 = Not at all Trouble relaxin = Not at all Being so restless that it is hard to sit still: 0 = Not at all Becoming easily annoyed or irritable: 0 = Not at all Feeling afraid as if something awful might happen: 0 = Not at all Total JACK-7 score (0-4 normal; 5-9 mild; 10-14 moderate; 15-21 severe): 0 Source: Developed by Drs. Jasson Coffman, Esperanza Ibarra, Chip Barker and colleagues, with an educational zhanna from [employer]. JACK-7 Assessment Billing JACK-7 Assessment Tool: JACK-7 Assessment 64531 Review of Systems Const Denies poor appetite and Denies weakness Eyes Denies no additional complaints ENT Reports Normal hearing present, Denies dizziness, Denies nasal congestion, Denies tinnitus and Denies sore throat Card Denies chest pain, Denies syncope, Denies rapid heart rate and Denies dyspnea Resp Denies cough and Denies dyspnea GI Denies change in stool character, Reports constipation, Denies diarrhea, Denies nausea and Denies vomiting Denies urinary frequency, Denies difficulty voiding and Denies dysuria Neuro Reports Normal hearing present, Denies confusion, Denies dizziness, Denies syncope and Denies weakness Psych Denies confusion Physical exam (Primary Care) Vital Signs: Last Vital Signs Pulse 65 07/18/24 14:54 BP 126/80 07/18/24 14:54 Pulse Ox 97 07/18/24 14:54 Oxygen Delivery Method Room Air 07/18/24 14:54 BMI result Body Mass Index 40.1 Tobacco/Smoking Status: Tobacco use Status Tobacco use date assessed 07/18/24 07/18/24 15:02 Patient Tobacco Use Status Former Tobacco user 07/18/24 15:47 Tobacco use type Cigarette 07/18/24 15:47 e-Cigarette/Vaping Use Never Used 07/18/24 15:47 PHQ-9: PHQ-9 Score PHQ-9: Total score 0 07/18/24 15:40 Depression Screening Interpretation: Negative Thrive Assessment: Date of Thrive Assessment Date Thrive assessed 07/18/24 07/18/24 15:02 Currently or been in a relationship where the following occur: No concerns reported Const General: No confusion Orientation/consciousness: No confusion HENMT Head: Yes normocephalic Ears: external ears normal and TM's normal bilaterally Face and sinus: Yes normal facial exam Mouth: moist mucous membranes Throat: Yes tonsils normal Eyes Conjunctivae: conjunctivae normal Pupils: Equal, round and reactive pupils present and Pupil accommodation reflex normal Direct Ophthalmoscopy: normal light reflex Neck Neck: No lymphadenopathy Thyroid: Thyroid normal Chest Chest palpation & inspection: normal inspection of the chest Resp Effort & Inspection: normal respiratory effort and no audible wheezes Auscultation: clear to auscultation bilaterally, no crackles, no wheezes and lung sounds not diminished Cardio Rate: regular rate Rhythm: regular rhythm Peripheral pulses: radial pulses present and dorsalis pedis present GI Palpation (GI): no masses Auscultation: normal bowel sounds and normoactive bowel sounds Rectal Exam - Female: deferred Skin General skin exam: no rashes or lesions noted Rashes: no rashes Neuro General: No confusion Cranial nerves: Yes Equal, round and reactive pupils present and Yes Normal hearing present Cognition (Neuro): normal cognition Gait exam (Neuro): Normal gait present Motor exam (neuro): 5/5 motor strength present throughout Deep tendon reflexes (DTR's): Right brachioradialis reflex intensity grade: 2+, Left brachioradialis reflex intensity grade: 2+, Right patellar reflex intensity grade: 2+ and Left patellar reflex intensity grade: 2+ Extrem General: No edema Coding Level of Care Code Est Pt Prev Care 40-64y(57374) Diagnoses Annual physical exam Z00.00 Morbid obesity due to excess calories E66.01 Impaired fasting blood sugar R73.01 Hypercholesterolemia E78.00 History of Mcguire's esophagus Z87.19 Asthma J45.909 Hypertension I10 Additional Codes JACK-7 Assessment Billing - JACK-7 Assessment Tool: JACK-7 Assessment 25542 ([id number]) PHQ-9 - 56152 - PHQ-9 Billing: Yes ([id number]) Assessment & Plan Assessment & Plan (1) Annual physical exam: Code(s): Z00.00 - Encounter for general adult medical examination without abnormal findings Category: Medical (2) Morbid obesity due to excess calories: Code(s): E66.01 - Morbid (severe) obesity due to excess calories Category: Medical (3) Impaired fasting blood sugar: Code(s): R73.01 - Impaired fasting glucose Category: Medical (4) Hypercholesterolemia: Code(s): E78.00 - Pure hypercholesterolemia, unspecified Category: Medical (5) History of Mcguire's esophagus: Comment: Reviewed record Mcguire's revealed back 2003-to follow-up EGD did not show Mcguire's Acid reflux breakthrough/water brash despite PPI Code(s): Z87.19 - Personal history of other diseases of the digestive system Category: Medical (6) Asthma: Code(s): J45.909 - Unspecified asthma, uncomplicated Category: Medical (7) Hypertension: Code(s): I10 - Essential (primary) hypertension Category: Medical Plan - Continue hydrochlorothiazide 25 mg daily for hypertension, monitor home BP logs. - Await fasting lipid panel results for hyperlipidemia, discuss potential statin therapy. - Maintain current asthma management with Wexela, consider alternative if not tolerated. - Suggest the option of returning to omeprazole if pantoprazole remains inadequate. - Promote regular use of nasal saline rinses for sinus congestion relief. - Evaluate urinary incontinence severity and consider behavioral strategies or pharmacotherapy if symptoms worsen. I discussed with the patient the importance of completing fasting blood tests to reassess cholesterol management. We reviewed the current management plan for asthma, considering her dissatisfaction with the inhaler, and explored potential medication alternatives. Regarding GERD, we talked about titrating back to omeprazole if pantoprazole remains slow to relieve symptoms. I stressed the importance of nasal rinses to alleviate sinus congestion, linked to allergic rhinitis. We planned for ongoing monitoring of urinary incontinence and discussed potential pharmacological intervention if necessary. I also informed her of the need for the COVID-19 vaccine, especially with her respiratory co ndition, while postponing RSV vaccine consideration until warranted by age or exposure status. - Complete fasting blood work as scheduled. - Continue daily asthma inhaler use and log frequency/intensity of asthma symptoms. - Contemplate dietary/lifestyle modifications to aid GERD management. - Monitor for any worsening urinary symptoms. - Maintain regular physical activity and eat a balanced diet. - Consult with your [employer] regarding regular screenings, if needed. - Ensure you vaccinate for COVID-19 to reduce respiratory risks. - Avoid allergens and maintain hydration according to recommended guidelines. Medications: New tirzepatide (Mounjaro) for 4 weeks 2.5 mg (0.5 mL) subcut QWEEK 2 mL 5RF E66.01 - Morbid (severe) obesity due to excess calories, R73.01 - Impaired fasting glucose
== END 2024-07-18 16:04 | disposition home or self-care (01) ==
PROVIDERS: PCP Internal Medicine; Visit Provider Internal Medicine
DX: Z00.00 Encounter for general adult medical examination without abnormal findings (principal); E66.01 Morbid (severe) obesity due to excess calories; Z68.41 Body mass index [BMI] 40.0-44.9, adult; E78.00 Pure hypercholesterolemia, unspecified; R73.01 Impaired fasting glucose; Z87.19 Personal history of other diseases of the digestive system; J45.909 Unspecified asthma, uncomplicated; I10 Essential (primary) hypertension

== ENCOUNTER → 2024-07-18 14:45 | Outpatient (BNVA) | payer OTHER, SELFPAY | PROVIDERS: PCP Internal Medicine; Visit Provider Internal Medicine | DX: Z00.00 Encounter for general adult medical examination without abnormal findings (principal); E66.01 Morbid (severe) obesity due to excess calories; Z68.41 Body mass index [BMI] 40.0-44.9, adult; R73.01 Impaired fasting glucose; E78.00 Pure hypercholesterolemia, unspecified; J45.909 Unspecified asthma, uncomplicated; I10 Essential (primary) hypertension; Z87.19 Personal history of other diseases of the digestive system; Z79.899 Other long term (current) drug therapy | CPT/HCPCS: 96127 ==

== ENCOUNTER 2025-06-20 08:49 | Outpatient (REF) | payer OTHER, SELFPAY ==
[2025-06-20 09:39] LABS: MANUAL DIFF FLAG NO
[2025-06-20 10:14] LABS: Hematocrit 43.1 % (37.0-47.0); Hemoglobin 14.3 g/dl (12.0-16.0); Imm Gran Abs Auto 0.03 X10*3/uL (0.00-0.03); Imm Gran Pct Auto 0.3 % (0.0-0.4); Lymphocytes Absolute Auto 2.5 X10*3/uL (1.2-4.9); Mean Corpuscular HGB Conc 33.2 g/dl (31.0-35.0); Mean Corpuscular Hemoglobin 29.3 pg (27.0-33.0); Mean Corpuscular Volume 88.3 fL (80.0-98.0); NRBC Abs Auto 0.000 X10*3/uL (0.0-0.012); NRBC Pct Auto 0.0 /100WBC (0.0-0.2); Platelet Count 248 X10*3/uL (160-400); Red Blood Count 4.88 X10*6/uL (4.20-5.50); White Blood Count 8.6 X10*3/uL (4.8-10.8)
[2025-06-20 10:52] LABS: Alanine Aminotransferase 21 U/L (0-31); Albumin Level 4.8 g/dL (3.5-5.0); Alkaline Phosphatase 90 U/L (39-117); Anion Gap 14 (12-20); Aspartate Amino Transferase 23 U/L (5-31); Blood Urea Nitrogen 14 mg/dL (9-16); Calcium 9.8 mg/dL (8.4-10.2); Carbon Dioxide 27 mmol/L (22-29); Chloride 107 mmol/L (96-108); Cholesterol 220 mg/dL (<200); Estimated Glomerular Filt Rate > 60; HDL Cholesterol 61 mg/dL (>40); Potassium 3.8 mmol/L (3.3-5.1); Sodium 144 mmol/L (135-145); Total Protein 7.8 g/dL (6.5-8.0); Triglycerides 119 mg/dL (<150)
[2025-06-20 11:08] LABS: Free T4 (Free Thyroxine) 1.07 ng/dL (0.71-1.85); Thyroid Stimulating Hormone 2.59 uIU/mL (0.32-4.0)
[2025-06-20 11:19] LABS: Folate 7.9 ng/mL (> or = 4.0); Vitamin B12 399 pg/mL (200-900)
== END 2025-06-20 08:50 | disposition home or self-care (01) ==
LOC: HO.LAB 08:49
PROVIDERS: PCP Internal Medicine; Visit Provider Internal Medicine
DX: E66.9 Obesity, unspecified (principal); E78.00 Pure hypercholesterolemia, unspecified; Z13.1 Encounter for screening for diabetes mellitus; Z13.21 Encounter for screening for nutritional disorder
CPT/HCPCS: 36415; 80053; 80061; 82306; 82607; 82746; 83036; 84439; 84443; 85025

== ENCOUNTER 2025-06-22 16:27 | Outpatient (AMB) | payer OTHER, SELFPAY ==
[2025-06-22 16:29] VITALS: BP 136/86; PULSE 76; TEMP 36.2; O2SAT 97; BMI 41.2
--- NOTE | 2025-06-22 16:29 | A.OFFPC_ITS ---
Vital Signs 06/22/25 16:29 Height 5 ft 2 in Weight 225 lb 2 oz BMI 41.2 BP 136/86 Blood Pressure Location Lt brachial Position Sitting Pulse 76 Pulse Source Pulse Oximeter Temp 97.1 F Temp Source Temporal Artery Scan Pulse Oximetry (%) 97 Oxygen Delivery Method Room Air Intake Visit Reasons: medication follow up Allergies Coles And Derivatives (CITRUS) Allergy (Unknown, Verified 06/22/25 16:32) ASTHMA ATTACKS shellfish derived (SHELLFISH DERIVED) Allergy (Unknown, Verified 06/22/25 16:32) UNKNOWN Medication List - Last Reconciled 06/22/25 by Johnathan Monson MD albuterol sulfate 90 mcg/actuation 2 puffs inhalation Q6H PRN cholecalciferol (vitamin D3) 25 mcg PO DAILY fexofenadine (Neida Allergy) 180 mg PO DAILY fluticasone propion-salmeterol 250-50 mcg/dose (Wixela Inhub) 1 inh inhalation BID fluticasone propionate 50 mcg/actuation 2 sprays intranasal DAILY hydrochlorothiazide 25 mg PO QAM multivitamin 1 tab PO DAILY pantoprazole 40 mg PO DAILY 30 days sertraline 100 mg PO DAILY 90 days tirzepatide (Mounjaro) 2.5 mg (0.5 mL) subcut QWEEK Tobacco use date assessed: 06/22/25 Dental Screening Dental Screen Date: 06/22/25 Did you have a dental visit in the last 12 months?: Yes Did you have a dental problem in the last 6 months where you did not have access to dental care?: No Was dental information given to patient?: Patient has dentist HPI HPI Comments History of Present Illness Details The patient is a 55 year old female with PMH of eczema, obestiy, vit D deficiency, COPD, GERD, MDD, presenting for medication refills and to review recent blood work. Her recent lab work showed a normal CBC and borderline high LDL cholesterol. Her calculated 10-year ASCVD risk is low at 1.8%, so statin is not indicated. The patient has a history of gastroesophageal reflux disease, for which she recently had an upper endoscopy which showed diffuse gastritis. Her GI doctor switched her from Omeprazole 20 mg to Pantoprazole 40 mg but found it ineffective and wishes to switch back to omeprazole, which she was on previously. For weight management, Dr. Floey prescribed Mounjaro, Zepbound, and Ozempic, all of which were denied by her insurance. She has a diagnosis of obstructive sleep apnea but does not use a CPAP machine. She reports associated symptoms of fatigue and brain fog. Her other chronic conditions include asthma, managed with Advair and albuterol, and allergies, managed with Flonase and Neida. She is also on sertraline, takes [id number] vitamin D for a known deficiency, and a multivitamin. She reports a history of eczema since childhood, with significant itching on her ankles, especially at night. She has also recently been experiencing constipation, which is a new symptom for her. [facility] Medical History Colon cancer screening Moderate obstructive sleep apnea Breast cancer screening by mammogram Frequency of micturition Generalized anxiety disorder Hypertension Obesity Asthma Allergic rhinitis Alcohol abuse GERD (gastroesophageal reflux disease) Surgical History History of esophagogastroduodenoscopy (EGD) Hx of colonoscopy H/O bilateral breast reduction surgery Family History Father No problems noted. Mother No problems noted. Maternal Grandfather Esophageal cancer Alcohol abuse Brother Schizophrenia Social History Housing: Apartment Alcohol intake: former Comment: once a month 2 drinks Patient Tobacco Use Status: Former Tobacco user Tobacco use type: Cigarette Years Smoked: 38 years old stopped e-Cigarette/Vaping Use: Never Used Second Hand Smoke Exposure: No service: No Current occupational status: employed Current occupation: [employer]- Current occupational exposures/hazards: No Cognitive needs: No Hearing needs: No Vision needs: Yes Questionnaire PHQ-9 Over the last 2 weeks, how often have you been bothered by any of the following problems? 1. Little interest or pleasure in doing things: not at all 2. Feeling down, depressed, or hopeless: not at all 3. Trouble falling or staying asleep, or sleeping too much: not at all 4. Feeling tired or having little energy: not at all 5. Poor appetite or overeating: not at all 6. Feeling bad about yourself - or that you are a failure or have let yourself or your family down: not at all 7. Trouble concentrating on things, such as reading the newspaper or watching television: not at all 8. Moving or speaking so slowly that other people could have noticed. Or the opposite - being so fidgety or restless that you have been moving around a lot more than usual: not at all 9. Thoughts that you would be better off or of hurting yourself in some way: not at all Total score: 0 Depression Screening Interpretation: Negative Depression Screening Done: Yes Source: Developed by Drs. Jasson Coffman, Esperanza Ibarra, Chip Barker and colleagues, with an educational zhanna from [employer]. Thrive Questionnaire Date Thrive assessed: 07/18/24 I am a: Patient What is your living situation today?: I have a steady place to live Within the past 12 months, did the food you bought not last and you didn't have the money to get more?: Never true Within the past 12 months, did you worry whether your food would run out before you got money to buy more?: Never true Do you have trouble paying for medicines?: No Do you have trouble getting transportation to medical appointments?: No Do you have trouble paying your heating and electricity bill?: No Do you have trouble taking care of your child, family member or friend?: No Do you have trouble with day-to-day activities such as bathing, preparing meals, shopping, managing finances, etc.?: No Are you currently unemployed and looking for a job?: No Are you interested in more education?: No Please select the resources that you would like help with: None Currently or been in a relationship where the following occur: No concerns reported THRIVE Score: 0 AUDIT C Alcohol Use Questionnaire (AUDIT-C) 1. How often do you have a drink containing alcohol?: Monthly or less 2. How many drinks containing alcohol do you have on a typical day when you are drinking?: 1 or 2 3. How often do you have six or more drinks on one occasion?: Never Total Score: 1 JACK-7 AMB Questionnaire JACK-7 Date JACK - 7 assessed: 07/18/24 Feeling nervous, anxious, or on edge: 0 = Not at all Not being able to stop or control worryin = Not at all Worrying too much about different things: 0 = Not at all Trouble relaxin = Not at all Being so restless that it is hard to sit still: 0 = Not at all Becoming easily annoyed or irritable: 0 = Not at all Feeling afraid as if something awful might happen: 0 = Not at all Total JACK-7 score (0-4 normal; 5-9 mild; 10-14 moderate; 15-21 severe): 0 Source: Developed by Drs. Jasson Coffman, Esperanza Ibarra, Chip Barker and colleagues, with an educational zhanna from [employer]. Review of Systems Const Details: As per HPI. Physical exam (Primary Care) Vital Signs: Last Vital Signs Temp 97.1 F 06/22/25 16:29 Pulse 76 06/22/25 16:29 BP 136/86 06/22/25 16:29 Pulse Ox 97 06/22/25 16:29 Oxygen Delivery Method Room Air 06/22/25 16:29 BMI result Body Mass Index 41.2 Tobacco/Smoking Status: Tobacco use Status Tobacco use date assessed 06/22/25 06/22/25 16:35 Patient Tobacco Use Status Former Tobacco user 06/22/25 16:35 Tobacco use type Cigarette 06/22/25 16:35 e-Cigarette/Vaping Use Never Used 06/22/25 16:35 PHQ-9: PHQ-9 Score PHQ-9: Total score 0 06/22/25 16:35 Depression Screening Interpretation: Negative Thrive Assessment: Date of Thrive Assessment Date Thrive assessed 07/18/24 06/22/25 16:35 Currently or been in a relationship where the following occur: No concerns reported Const Other: Pertinent findings are in BOLD GENERAL APPEARANCE NAD, activity normal for age, well developed/ well nourished, no cyanosis, pallor, or diaphoresis. EYES lids/conjunctiva normal. EARS/NOSE/THROAT Mucous membranes moist, nares normal, lips/teeth normal uvula midline without oral pharyngeal erythema, exudate or swelling TMs normal bilaterally. No lymphangitis/lymphedema. HEAD/NECK normocephalic atraumatic, no facial trauma, neck is supple. RESPIRATORY respiratory effort normal, speaks in full sentences, no tripod position, no accessory muscle use. Lungs clear to auscultation without rhonchi, wheezes, rales CARDIAC Regular rate and rhythm, no edema. ABDOMINAL Soft, ND/NT. No evidence of fluid wave. No pulsatile masses on exam, rebound tenderness, Junior sign or pain over Mcburney's point. MUSCLES/EXTREMITIES No abnormal range of motion, no swelling. SKIN Warm, pink and dry. No rashes, dermatoses, petechiae or lesions. NEUROLOGICAL Speech is clear and appropriate. Normal level of consciousness. Gait and coordination are normal. 5/5 strength in all extremities. PSYCH Normal mood and affect. Judgement/competence is appropriate Coding Level of Care Code Est Pt Level 4 (42507) Diagnoses Obesity E66.9 Body mass index: BMI 40.0-44.9 Obesity type: unspecified obesity type Obesity classification: adult class 3 (BMI >= 40) Moderate obstructive sleep apnea G47.33 Hypercholesterolemia E78.00 History of Mcguire's esophagus Z87.19 Time Spent (min) 30 Assessment & Plan Assessment & Plan (1) Obesity: Code(s): E66.9 - Obesity, unspecified Category: Medical Qualifiers: Body mass index: BMI 40.0-44.9 Obesity type: unspecified obesity type Obesity classification: adult class 3 (BMI >= 40) Plan: - The patient's previous attempts to get prescriptions for Mounjaro, Zepbound, and Ozempic were denied by insurance. - It was noted that Mounjaro is FDA-approved for obstructive sleep apnea. - A new prescription for Mounjaro will be sent to the pharmacy. - The patient was advised to inform her insurance company of her obstructive sleep apnea diagnosis when seeking approval for Mounjaro. - A referral will be placed to the Weight Management clinic for further evaluation and management of weight loss medications. (2) Moderate obstructive sleep apnea: Comment: positional July 2018 Code(s): G47.33 - Obstructive sleep apnea (adult) (pediatric) Category: Medical Plan: Advised manuel to be compliant with her CPAP machine. (3) Hypercholesterolemia: Code(s): E78.00 - Pure hypercholesterolemia, unspecified Category: Medical Plan: - The patient's cholesterol is elevated but her calculated 10-year ASCVD risk is low at 1.8%. - Statin medication is not indicated at this time. - Extensive dietary counseling was provided, focusing on an elimination diet to improve overall health and potentially lower cholesterol. (4) History of Mcguire's esophagus: Comment: Reviewed record Mcguire's revealed back 2003-to follow-up EGD did not show Mcguire's Acid reflux breakthrough/water brash despite PPI Code(s): Z87.19 - Personal history of other diseases of the digestive system Category: Medical Plan: The patient reports pantoprazole is not effective and prefers omeprazole. - Omeprazole has longer duraiton of action and was providing longer periods of relief than Pantoprazole. - Omeprazole was restarted at a higher dose. Was previously on 20 mg. The dose was increased to 40 mg due to history of known gastritis. Plan I reviewed the patient's recent lab results, noting her CBC was normal and LDL cholesterol was borderline high. I calculated her 10-year ASCVD risk at a low 1.8% and explained that a statin medication is not necessary at this time. We discussed her interest in weight loss medications and the previous insurance denials. I informed her that Mounjaro is FDA-approved for obstructive sleep apnea and that this diagnosis should be mentioned to her insurance, and I placed a referral to the Weight Management clinic to explore these options further. We also switched her acid reflux medication from pantoprazole back to omeprazole 40 mg as per her preference and refilled her other chronic medications. I provided extensive dietary counseling, suggesting an elimination diet. I explained that this could help not only with weight loss but also with her acid reflux, fatigue, skin issues, and allergies. I recommended she try eliminating two food groups at a time to monitor for improvement. I advised a follow-up visit with Dr. Foley in six months to reassess her progress. - All medications were refilled, including Advair (Wixana), Flonase, albuterol, Neida, and sertraline. - The patient will continue taking [id number] vitamin D and a multivitamin. Orders: Referrals Medical Weight Management Referral E66.9 - Obesity, unspecified, G47.33 - Obstructive sleep apnea (adult) (pediatric) Medications: New omeprazole 40 mg PO DAILY 60 caps 3RF Refilled albuterol sulfate 90 mcg/actuation 2 puffs inhalation Q6H PRN 8.5 grams 0RF bronchospasm E66.9 - Obesity, unspecified fluticasone propion-salmeterol 250-50 mcg/dose (Wixela Inhub) 1 inh inhalation BID 60 ea 3RF J45.909 - Unspecified asthma, uncomplicated fluticasone propionate 50 mcg/actuation administer into each nostril 2 sprays intranasal DAILY 16 grams 1RF J30.9 - Allergic rhinitis, unspecified fexofenadine (Neida Allergy) 180 mg PO DAILY 90 tabs 2RF J30.9 - Allergic rhinitis, unspecified sertraline 100 mg PO DAILY 90 tabs 3RF 90 days F41.1 - Generalized anxiety disorder tirzepatide (Mounjaro) for 4 weeks 2.5 mg (0.5 mL) subcut QWEEK 2 mL 5RF E66.01 - Morbid (severe) obesity due to excess calories, R73.01 - Impaired fasting glucose Discontinued pantoprazole Discontinued Reason: Doctor's Order 40 mg PO DAILY 30 days 30 tabs 1RF
--- OUTSIDE RECORDS SUMMARY | 2025-06-23 01:57 | XMS_ITS | Patient Health Record ---
Author Organization 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 Name Role Phone Nathaly Foley MD Primary Care Provider Jasson Vasquez [phone] Allergies Allergen (clinical drug ingredient) Drug/Non Drug Allergy documented on EMR Reaction Allergy Type Onset Date Status dust,pollen (uncoded) Unknown Allergy Active Reason For Referral No Information Medications Medication SIG (Take, Route, Frequency, Duration) Notes Start Date End Date Status Flonase prn Active Omeprazole 20 mg capsule TAKE 1 CAPSULE ONCE A DAY ORALLY Active Advair Diskus 100/50 Active Social History Social History Additional Details Category Social Info Options Details Miscellaneous: Marital status: single 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 al cohol Nonsmoker x 3 years; occ. al cohol Problems Problem Type SNOMED Code ICD Code Onset Dates Problem Status W/U Status Risk Notes Problem Gastroesophageal reflux disease without esophagitis (119107015) Gastroesophageal reflux disease without esophagitis (K21.9) Active confirmed Problem Mcguire's esophagus (843765671) Barretts esophagus without dysplasia (K22.70) Active confirmed Plan Of Treatment Pending Test Test Name Order Date GI BIOPSY 09/15/2016 Future Test Test Name Order Date UPPER GI ENDOSCOPY 10/31/2011 UPPER GI ENDOSCOPY 09/10/2016 Insurance Providers Payer Name Payer Address Payer Phone Subscriber Number Group Number Insured Name Patient Relationship to Insured Coverage Start Date Coverage End Date [facility] [address] [place] [phone] [id number] KARLEE ELLIS Self - patient is the insured Medical (General) History Medical History History ICD Code GERD/Mcguire's seen in 2003- --EGD 11-17-2011--moderate-sized HH and no definite Mcguire's on the biopsies--no esophagitis Asthma Denies [place],DM,CVA,renal disease Surgical History Surgery Date(Month/Year) Breast reduction 2012
== END 2025-06-22 17:00 | disposition home or self-care (01) ==
LOC: HO.HMCH 16:28
PROVIDERS: PCP Internal Medicine; Visit Provider Internal Medicine
DX: G47.33 Obstructive sleep apnea (adult) (pediatric) (principal); E66.9 Obesity, unspecified; Z68.41 Body mass index [BMI] 40.0-44.9, adult; E78.00 Pure hypercholesterolemia, unspecified; Z87.19 Personal history of other diseases of the digestive system